=== PATIENT | female | born 1975 | race Hispanic/Latino ===

== ENCOUNTER → 2019-02-19 | Outpatient (CLI) | payer BC ==
--- NOTE | 2019-02-19 17:22 | Diagnostic Imaging Report ---
EXAMINATION: ANKLE 3+ VIEWS LEFT INDICATION: Left ankle pain COMPARISON: None FINDINGS: AP, lateral and oblique images of the left ankle were obtained. No acute fracture or dislocation. The ankle mortise is intact and symmetric. No substantial ankle joint effusion. Minimal Achilles enthesopathy. No substantial degenerative change. The soft tissues appear unremarkable. IMPRESSION: No acute osseous injury. Signed by: Linda Rodriguez MD on 02/19/2019 5:19 PM
== END ==
LOC: US 14:32
PROVIDERS: ATTEND Family Medicine
DX: I83.93 Asymptomatic varicose veins of bilateral lower extremities (principal); M79.662 Pain in left lower leg; M79.661 Pain in right lower leg; M25.572 Pain in left ankle and joints of left foot
CPT/HCPCS: 93970

== ENCOUNTER 2024-07-09 20:25 | Observation (INO) | payer BC ==
[~2024-07-09] VITALS: Ht 152.4 cm; Wt 101.2 kg
[~2024-07-09 20:25] MED LIST: BROMPHENIR-PSE118 ML PO; CEPHALEXIN500 MG PO; PREDNISONE5 MG PO
[2024-07-09] MEDS ORDERED: ASPIRIN 81 MG CHEW TAB PO ONE (20:45)
[2024-07-09] MEDS ORDERED: ONDANSETRON HCL INJ 2MG/ML 2ML 2 MG/ML VIAL IV PRN (20:45)
[2024-07-09 20:55] VITALS: TEMP 98.3
[2024-07-09] MEDS: SODIUM CHLORIDE 0.9% 500ML 500 ML IV STA (21:11)
[2024-07-09] MEDS: FAMOTIDINE 20 MG/2 ML VIAL IV ONE (21:11)
[2024-07-09] MEDS: ONDANSETRON HCL INJ 2MG/ML 2ML 2 MG/ML VIAL IV STA (21:16)
[2024-07-09] MEDS: ASPIRIN 81 MG CHEW TAB PO ONE (21:17)
[2024-07-09] MEDS ORDERED: ZOLPIDEM TARTRATE 5 MG TAB PO PRN (22:00)
[2024-07-09] MEDS ORDERED: DIPHENHYDRAMINE HCL INJ 50 MG/ML VIAL IV PRN (22:00)
[2024-07-09] MEDS ORDERED: ACETAMINOPHEN 325 MG TAB PO PRN (22:00)
[2024-07-09] MEDS ORDERED: CLONIDINE HCL 0.1 MG TAB PO PRN (22:00)
[2024-07-09 23:35] VITALS: PULSE 65; RESP 18
[2024-07-10] VITALS (7 sets, daily range): BP systolic 106–132; BP diastolic 64–82; PULSE 62–79; RESP 18–19; TEMP 97.6–98.2; O2SAT 98–100
[2024-07-10 07:24] LABS: BASOPHILS % 0.3 % (0.0-1.0); EOSINOPHILS # (AUTO) 0.1 (0.0-0.4); EOSINOPHILS % 2.1 % (0.0-6.0); HEMATOCRIT 37.8 % (34.2-44.1); HEMOGLOBIN 12.8 g/dL (12.0-16.0); LYMPHOCYTES % 31.4 % (18.0-39.1); MEAN CORPUSCULAR HEMOGLOBIN 28.6 pg (28-32); MEAN CORPUSCULAR HGB CONC 33.9 g/dL (31-35); MEAN CORPUSCULAR VOLUME 84.4 fL (81-99); MONOCYTES # (AUTO) 0.6 (0.2-0.8); MONOCYTES % 8.8 % (4.4-11.3); NEUTROPHILS # (AUTO) 3.6 (2.1-6.9); NEUTROPHILS % 57.2 % (38.7-80.0); PLATELET COUNT 248 x10e3/uL (140-360); RED BLOOD COUNT 4.48 x10e6/uL (3.6-5.1); RED CELL DISTRIBUTION WIDTH 12.7 % (11.7-14.4); WHITE BLOOD COUNT 6.33 x10e3/uL (4.8-10.8)
[2024-07-10 08:24] LABS: ANION GAP 14.1 mmol/L (8-16); CHOL/HDL RATIO 3.2 (3.0-3.6); CREATININE, SERUM 0.7 mg/dL (0.57-1.11); POTASSIUM 4.1 mmol/L (3.5-5.1)
[2024-07-10 08:29] LABS: TROPONIN I 0.006 ng/mL (0-0.300)
[2024-07-10] MEDS ORDERED: ATORVASTATIN CA20 MG PO (08:37)
[2024-07-10] MEDS ORDERED: LOSARTAN POTASS25 MG PO (08:37)
[2024-07-10] MEDS ORDERED: HYDROCHLOROTHIA25 MG (08:37)
[2024-07-10] MEDS: FAMOTIDINE 20 MG TAB PO SCH (08:38)
[2024-07-10] MEDS: ASPIRIN 81 MG ENTERIC COATED PO SCH (08:39)
[2024-07-10] MEDS ORDERED: BISACODYL 10 MG SUPP PR PRN (10:30)
[2024-07-10] MEDS ORDERED: POLYETHYLENE GLYCOL 3350 17 GM PACK PO PRN (10:30)
[2024-07-10] MEDS ORDERED: ASPIRIN EC81 MG PO (12:20)
[2024-07-10] MEDS ORDERED: PANTOPRAZOLE SO40 MG PO (12:21)
[2024-07-10 12:22] LABS: CHOL/HDL RATIO 3.2 (3.0-3.6)
[2024-07-10 12:42] LABS: THYROID STIMULATING HORMONE 1.849 uIU/mL (0.350-4.940)
== END 2024-07-10 12:45 | disposition home or self-care (01) ==
LOC: FSED 20:43 → ERHOLD 21:53 → MED/SURG3 23:52
PROVIDERS: ADMIT Internal Medicine; ATTEND Internal Medicine
DX: R07.89 Other chest pain (principal); I10 Essential (primary) hypertension; E78.2 Mixed hyperlipidemia; E66.01 Morbid (severe) obesity due to excess calories; Z68.41 Body mass index [BMI] 40.0-44.9, adult
CPT/HCPCS: 36415; 71046; 80048; 80053; 80061; 81003; 82550; 82553; 83036; 84443; 84484 ×2; 85025 ×2; 85379; 93005; 99284; G0378 ×2; J2405; J7040